=== PATIENT | female | born 1985 | race Caucasian/White ===

== ENCOUNTER → 2024-09-18 | Day surgery (SDC) | payer OTHER ==
[2024-09-16 16:49] LABS: BASOPHILS % 0.6 % (0.0-1.0); EOSINOPHILS # (AUTO) 0.1 (0.0-0.4); EOSINOPHILS % 1.2 % (0.0-6.0); HEMATOCRIT 40.2 % (34.2-44.1); HEMOGLOBIN 12.4 g/dL (12.0-16.0); LYMPHOCYTES # (AUTO) 1.9 (1.0-3.2); LYMPHOCYTES % 28.9 % (18.0-39.1); MEAN CORPUSCULAR HEMOGLOBIN 32.4 pg (28-32); MEAN CORPUSCULAR HGB CONC 30.8 g/dL (31-35); MONOCYTES # (AUTO) 0.5 (0.2-0.8); MONOCYTES % 7.3 % (4.4-11.3); NEUTROPHILS # (AUTO) 4.1 (2.1-6.9); NEUTROPHILS % 61.7 % (38.7-80.0); PLATELET COUNT 301 x10e3/uL (140-360); RED BLOOD COUNT 3.83 x10e6/uL (3.6-5.1); RED CELL DISTRIBUTION WIDTH 12.8 % (11.7-14.4); WHITE BLOOD COUNT 6.62 x10e3/uL (4.8-10.8)
[2024-09-16 17:14] LABS: ALBUMIN 4.1 g/dL (3.5-5.0); ALBUMIN/GLOBULIN RATIO 1.2 (0.8-2.0); ANION GAP 13.6 mmol/L (8-16); BILIRUBIN,TOTAL 0.3 mg/dL (0.2-1.2); CALCIUM 9.8 mg/dL (8.4-10.2); CREATININE, SERUM 0.79 mg/dL (0.57-1.11); POTASSIUM 3.6 mmol/L (3.5-5.1); TOTAL PROTEIN 7.4 g/dL (6.5-8.1)
[~2024-09-18] MED LIST: ADDERALL XR 2020 MG PO; DEXAMETHASONE SOD PHOS INJ 4 MG/ML SDV ONE; FENTANYL CITRATE/PF 100MCG/2 ML INJ ONE; LIDOCAINE HCL 2% LOCAL INJ 5 ML SDV VIAL INJ ONE; MIDAZOLAM HCL 2 MG/2 ML VIAL ONE; ONDANSETRON HCL INJ 2MG/ML 2ML 2 MG/ML VIAL ONE; PROPOFOL IV EMULSION 10 MG/ML 20 ML VIAL ONE
[2024-09-18] MEDS: CEFAZOLIN SODIUM 2 GM ONE (06:03)
[2024-09-18] MEDS: LACTATED RINGER'S 1,000 ML ONE (06:04)
[2024-09-18 07:35] VITALS: TEMP 97.3
[2024-09-18] MEDS: ONDANSETRON HCL INJ 2MG/ML 2ML 2 MG/ML VIAL ONE (08:08)
[2024-09-18] MEDS: HYDROCODONE/APAP 5MG-325MG TAB ONE (08:10)
[2024-09-18] MEDS: FENTANYL CITRATE/PF 100MCG/2 ML INJ ONE (08:20)
[2024-09-18 09:20] VITALS: BP 117/74; PULSE 67; RESP 16; O2SAT 98
== END | disposition home or self-care (01) ==
LOC: OR 05:18
PROVIDERS: ATTEND Orthopaedic Surgery
DX: S83.231A Complex tear of medial meniscus, current injury, right knee, initial encounter (principal); S83.281A Other tear of lateral meniscus, current injury, right knee, initial encounter; M65.161 Other infective (teno)synovitis, right knee; M67.51 Plica syndrome, right knee; D64.9 Anemia, unspecified; F17.290 Nicotine dependence, other tobacco product, uncomplicated; X58.XXXA Exposure to other specified factors, initial encounter; Z01.812 Encounter for preprocedural laboratory examination; Z79.899 Other long term (current) drug therapy
CPT/HCPCS: 29882; 29999; 36415; 80053; 81025; 85025; C1713 ×3; J1100; J2003; J2250; J2405; J2704; J3010; J7121